=== PATIENT | male | born 1980 | race Hispanic/Latino ===

== ENCOUNTER 2024-04-14 03:01 | Emergency (ER) | payer SELFPAY ==
[2024-04-14] MEDS ORDERED: CEFAZOLIN 2 GM VIAL ONE (03:16)
[2024-04-14] MEDS ORDERED: TETANUS, DIPHTHERIA TOX,ADULT (TDVAX) 0.5 ML VIAL IM ONE (03:17)
[2024-04-14] MEDS ORDERED: Sodium Chloride 0.9% 100 ML ONE (03:18)
[2024-04-14] MEDS ORDERED: Lidocaine 1% (PF) 30 ML VIAL ONE (03:22)
[2024-04-14] MEDS ORDERED: Boostrix 0.5 ML (Tdap) VIAL (>/=7 yrs of age) ONE (03:34)
[2024-04-14 03:43] LABS: #Basophils 0.08 10x3/uL (0.0-0.2); %Basophils 0.8 % (0.0-1.0); %Eosinophils 6.1 % (0.0-10.0); %Lymphocytes 23.2 % (21.0-51.0); %Monocytes 10.3 % (0.0-10.0); %Neutrophils 59.2 % (42.0-75.0); Hematocrit 47.2 % (42.0-52.0); Hemoglobin 15.8 g/dL (14.0-18.0); Mean Corpuscular HGB CONC 33.5 g/dL (32.0-36.0); Mean Corpuscular Hemoglobin 31.2 pg (27.0-31.0); Mean Corpuscular Volume 93.3 fL (78.0-98.0); Mean Platelet Volume 10.7 fL (7.4-10.4); Platelet Count 231 10x3/uL (130-400); RBC Distribution Width 13.3 % (11.5-14.5); Red Blood Cell (RBC) Count 5.06 mill/uL (4.70-6.10)
[2024-04-14 04:51] LABS: ALT (SGPT) 22 U/L (8-55); AST (SGOT) 22 U/L (5-34); Albumin 3.9 g/dL (3.5-5.0); Alkaline Phosphatase 65 U/L (40-110); Anion Gap 16 mmol/L (10-20); BUN (Urea Nitrogen) 10 mg/dL (8.9-20.6); Bilirubin, Total 0.5 mg/dL (0.2-1.2); Calc. Creatinine Clearance 0 mL/min (70-130); Carbon Dioxide 18 mmol/L (22-29); Chloride 105 mmol/L (98-107); Estimated GFR 110; Globulin 3.2 g/dL (2.4-3.5); Glucose 106 mg/dL (70-105); Potassium 3.4 mmol/L (3.5-5.1); Protein, Total 7.1 g/dL (6.0-8.3); Sodium 136 mmol/L (136-145)
== END 2024-04-14 05:15 ==
LOC: ERS 03:01
DX: S06.9X9A Unspecified intracranial injury with loss of consciousness of unspecified duration, initial encounter (principal); S01.511A Laceration without foreign body of lip, initial encounter; Y04.2XXA Assault by strike against or bumped into by another person, initial encounter; Y93.89 Activity, other specified; Z23 Encounter for immunization; Z55.0 Illiteracy and low-level literacy
CPT/HCPCS: 36415; 40650; 70450; 70486; 72125; 80053; 85025; 87040; 90471; 90714; 90715; 96374; G0390; J2001; J3490

== ENCOUNTER 2024-04-26 02:25 | Emergency (ER) | payer SELFPAY | END 2024-04-26 03:17 | LOC: EEVIPCON 02:25 → ERS 02:25 | DX: Z02.89 Encounter for other administrative examinations (principal) | CPT/HCPCS: 99282 ==

== ENCOUNTER 2025-07-01 13:53 | Outpatient (CLI) | payer OTHER | END 2025-07-01 13:54 | disposition home or self-care (01) | LOC: EEVIPCON 13:53 → ULT 13:53 | PROVIDERS: ATTEND Nurse Practitioner | DX: N50.819 Testicular pain, unspecified (principal); N50.3 Cyst of epididymis; N43.3 Hydrocele, unspecified | CPT/HCPCS: 76870; 93976 ==